=== PATIENT | female | born 1980 | race Caucasian/White ===

== ENCOUNTER 2017-10-24 10:58 | Day surgery (SDC) | payer OTHER ==
[~2017-10-24 10:58] MED LIST: Buffered Lidocaine 0.9% SYRIN* 5 ML/SYR SYRINGE INTRADERM ONE; ceFAZolin 2 GM PREMIX (*) 2 GM/50 ML BAG IVPB ONE
[2017-10-24 11:22] LABS: Hematocrit 40 % (35-47); Hemoglobin 13.4 g/dl (12.0-16.0); Mean Corpuscular HGB Conc 34 g/dl (31-36); Mean Corpuscular Hemoglobin 30 pg (27-31); Mean Corpuscular Volume 89 fL (80-97); Mean Platelet Volume 7.2 um3 (7.4-10.4); Platelet Count 215 10^3/ul (150-450); Red Blood Count 4.49 10^6/ul (4.00-5.40); Red Cell Distribution Width 12 % (10.5-15); White Blood Count 4.8 10^3/ul (3.5-10.8)
[2017-10-24] MEDS ORDERED: Midazolam* 1 MG/ML 2 ML VIAL (2 MG) ONE ×2 (11:55→13:24)
[2017-10-24] MEDS ORDERED: fentaNYL* 50 MCG/ML 2 ML VIAL (100 MCG VIAL) ONE (11:55)
[2017-10-24] MEDS ORDERED: DiMENhydriNATE IV* 50 MG/ML VIAL IV PUSH PRN (12:23)
[2017-10-24] MEDS ORDERED: Acetaminophen TAB* 325 MG PO PRN (12:23)
[2017-10-24] MEDS ORDERED: Ondansetron INJ* 2 MG/ML VIAL IV PRN (12:23)
[2017-10-24] MEDS ORDERED: Naloxone* 0.4 MG/ML 1 ML VIAL IV PRN (12:23)
[2017-10-24] MEDS ORDERED: fentaNYL* 50 MCG/ML 2 ML VIAL (100 MCG VIAL) IV PRN (12:23)
[2017-10-24] MEDS ORDERED: Scopolamine 1.5 mg* PATCH TRANSDERM PRN (12:23)
[2017-10-24] MEDS ORDERED: HYDROcodone/ACETAMIN 5-325 MG* 1 TAB PO PRN ×2 (12:23)
[2017-10-24] MEDS ORDERED: Nalbuphine* 10 MG/ML 1 ML VIAL IV PRN (12:23)
[2017-10-24] MEDS ORDERED: PROCHLORPERAZINE INJ 5 MG/ML 2 ML VIAL IV PRN (12:23)
[2017-10-24] MEDS ORDERED: Famotidine IV* 10 MG/ML 2 ML (20 mg) ONE (13:13)
[2017-10-24] MEDS ORDERED: Lidocaine 2% PF * 5 ML VIAL ONE (13:24)
[2017-10-24] MEDS ORDERED: Ondansetron INJ* 2 MG/ML VIAL ONE (13:25)
[2017-10-24] MEDS ORDERED: Dexamethasone IV* 4 MG/ML 1 ML (4 MG) ONE (13:25)
[2017-10-24] MEDS ORDERED: Ketorolac INJ* 30 MG/ML 1 ML VIAL ONE (13:25)
[2017-10-24] MEDS ORDERED: Propofol* 10 MG/ML 20 ML BTL IV PUSH ONE (13:25)
[2017-10-24 15:19] VITALS: BP 134/86
--- NOTE | 2017-10-25 02:28 | OP ---
CC: Dr. Davis, [facility] location, [address] OPERATIVE REPORT: DATE OF OPERATION: 10/24/17 DATE OF : 80 SURGEON: Dennis Davis MD ANESTHESIOLOGIST: Lm Warner MD ANESTHESIA: General endotracheal anesthesia. PRE-OP DIAGNOSIS: Embedded Mirena intrauterine device. POST-OP DIAGNOSIS: Embedded Mirena intrauterine device. OPERATIVE PROCEDURE: Dilation, hysteroscopy, removal of embedded Mirena IUD. FINDINGS: Midline anteverted uterus. No adnexal masses palpated. Midline cervix. With complete relaxation, the cervix prolapses to a second-third degree. The IUD was found to be sitting midline at the fundus. The IUD strings were both towards the fundus on the patient's right side. The IUD was examined and found to be intact with both strings attached. The endometrium appeared atrophic throughout. ESTIMATED BLOOD LOSS: Minimal, less than 20 cc. COMPLICATIONS: None. COUNTS: Sponge, lap, and needle count correct x2. CONDITION: The patient was brought to recovery room awake and in stable condition. DESCRIPTION OF PROCEDURE: The patient was brought to the operating room. When general anesthesia was found to be adequate, the patient was prepped and draped in the usual sterile fashion in the dorsal lithotomy position. A time-out was performed. Exam under anesthesia was performed. The IUD strings were not visualized or palpated. The anterior lip of the cervix was grasped with a single- tooth tenaculum. The cervix was gently and easily dilated with graduated Martinez dilators. The hysteroscope was introduced with the above findings noted. The operative hysteroscope was used to grasp the 2 strings and the IUD was gently and easily removed. It was examined. It was found to be intact. The remainder of the uterus was observed with the hysteroscope. The entire lining appeared atrophic. Both tubal ostia were visualized. All instruments were removed from the vagina. The patient tolerated the procedure well and was brought to recovery room awake and in stable condition. [id number]/[facility] #: [id number] [facility] SYSTEM[facility]ina
[2017-10-27] MEDS ORDERED: Scopolamine PATCH Remove* 1 NOTE MISC PATCH OFF ONE (12:24)
== END 2017-10-24 15:35 | disposition home or self-care (01) ==
LOC: OR 10:58
PROVIDERS: ATTEND Obstetrics & Gynecology
DX: T83.39XA Other mechanical complication of intrauterine contraceptive device, initial encounter (principal); Z87.440 Personal history of urinary (tract) infections; M47.812 Spondylosis without myelopathy or radiculopathy, cervical region; M47.817 Spondylosis without myelopathy or radiculopathy, lumbosacral region
CPT/HCPCS: 36415; 85027; 86850; 86900; 86901; J0690; J1100; J1885; J2250; J2405; J2704; J3010

== ENCOUNTER 2018-06-16 20:21 | Emergency (ER) | payer OTHER ==
--- OUTSIDE RECORDS SUMMARY | 2018-06-16 21:05 | XMS REPORT | Continuity of Care Document ---
:1980 External Reference #:[id number] Author Name Yael Wright PNP-BC, BARREL RIB MATTING MACHINE OPERATOR, [place] Address [address] [place] [address] Care Team Providers Name Role Phone Yael Wright PNP-BC, FNP, Andreea Care Team Information Clinical Rehabilitation Specialist Unavailable Yael Wright PNP-BC, FNP, [place]von Primary Care Physician Unavailable Payers Date Identification Numbers Payment Provider Subscriber Policy Number: [id number] [place] [employer] Adali Squires PayID: [id number] [address] [address] [place] [address] Advance Directives Description No Information Available Problems Date Description Provider Status Onset: 05/11/2015 Recurrent urinary tract infection Yael Santamaria PA- C Active Onset: 05/11/2015 Carpal tunnel syndrome Yael Santamaria PA-C Active Onset: 05/11/2015 Anemia Yael Santamaria PA-C Active Onset: 05/11/2015 Cervical arthritis Yael Santamaria PA-C Active Onset: 05/11/2015 Sciatica Yael Santamaria PA-C Active Onset: 05/11/2015 Anxiety Yael Santamaria PA-C Active Onset: 05/11/2015 History of bypass of stomach Yael Santamaria PA-C Active Onset: 05/11/2015 Gastroesophageal reflux disease Yael Santamaria PA-C Active Onset: 12/04/2016 Low back pain Margareth Hallman MD Active Onset: 12/04/2016 Neck pain Margareth Hallman MD Active Onset: 12/04/2016 Shoulder joint pain Margareth Hallman MD Active Onset: 03/05/2017 Bipolar I disorder Yael Wright, PNP-BC, Active [employer] MATTING MACHINE OPERATOR, Ibclc Onset: 05/11/2015 Adult health examination Yael Santamaria PA-C Resolved Resolved: 04/30/2016 Family History Date Family Member(s) Observation Comments Father Heart Disease : (age 62 Father due to Heart Disease Years) Father Diabetes Mother Mother Alive & Well Maternal Grandmother due to Lung Cancer () Maternal Grandmother due to Cancer, Brain () Social History Type Date Description Comments Sex Unknown Marital Status Single Lives With Children Lives With Significant Other Diet Patient follows no dietary restrictions Occupation Unemployed Work Status Part-Time ADL's/IADL's Independent with all ADL's ADL's/IADL's Independent with all IADL's Tobacco Use Start: Unknown Never Smoked Cigarettes ETOH Use Denies alcohol use Tobacco Use Start: Unknown Patient has never smoked Recreational Drug Use Denies Drug Use Smoking Status Reviewed: 05/12/18 Patient has never smoked Allergies, Adverse Reactions, Alerts Date Description Reaction Status Severity Comments 04/30/2016 Penicillin Active 04/30/2016 Hydrocodone Active 08/21/2017 Bactrim Urticaria Active Moderate 08/23/2014 NKDA Inactive Medications Medication Date Status Form Strength Qnty SIG Indications Ordering Provider Ketorolac Active Tablets 10mg 30tabs 1 tab M62.830 Kyle Tromethamine 019 every Yael, 4-6 PNP-BC, hours as [employer] MATTING MACHINE OPERATOR, Ibclc needed pain Decadron Active Tablets 0.5mg qs 2 tabs M25.512 Kyle 019 by mouth Yael, every PNP-BC, day x 5 [employer] M[employer]ING MACHINE OPERATOR, Ibclc days Duloxetine HCL Active Caps DR 60mg 30caps 1 by F41.9 Kyle, 019 Part mouth Yael, every PNP-BC, day [employer] MATTING MACHINE OPERATOR, Ibclc F31.9 Polyethylene 03/12/2018 Active Powder 3350NF 255gm mix 1 K59.00 Kyle Glycol 3350 tablespoon Yael, in 8 ounces PNP-BC, bottle two [employer] MATTING MACHINE OPERATOR, times a day Ibclc Lactulose 03/12/2018 Active Solution 10GM/15M 237ml 5ml by mouth K59.00 Vidhi Wright twice a day Yael, for 5 days PNP-BC, [employer] MATTING MACHINE OPERATOR, Ibclc Quetiapine 02/25/2018 Active Tablets 50mg 30tabs take 1 at F31.9 Kyle , Fumarate bedtime with Yael, 200mg PNP-BC, tablet. [employer] MATTING MACHINE OPERATOR, Ibclc Oxycodone-Aceta 12/23/2017 Active Tablets 10-325mg 90tabs 1 by mouth M48.00 Kyle minophen for pain Yael, every 6 PNP-BC, hours as [employer] MATTING MACHINE OPERATOR, needed Ibclc reference #: [id number] M54.5 Quetiapine 07/29/2017 Active Tablets 200mg 30tabs 1 tab at F31.9 Kyle , Fumarate bedtime Yael, with 50mg PNP-BC, tablet [employer] MATTING MACHINE OPERATOR, Ibclc Tramadol HCL 07/23/2017 Active Tablets 50mg 180tabs take two M54.2 Kyle, tablets by Yael, mouth every PNP-BC, 8 hours as [employer] MATTING MACHINE OPERATOR, needed for Ibclc pain Reference #: [id number] Cyclobenzaprine 07/02/2017 Active Tablets 10mg 90tabs 1 by mouth M48.00 Kyle, HCL three times Yael, a day as PNP-BC, needed [employer] MATTING MACHINE OPERATOR, muscle Ibclc spasms M54.5 M54.2 Clonazepam 06/19/2017 Active Tablets 1mg 90tabs take 1 tab F41.9 Kyle , every day Yael, as needed PNP-BC, for [employer] MATTING MACHINE OPERATOR, moderate Ibclc severe anxiety Reference #: [id number] Zofran Odt 03/05/2017 Active Tablets 8mg 30tabs 1 po q6 R11.0 Kyle, Dispers hours as Yael, needed PNP-BC, [employer] MATTING MACHINE OPERATOR, Ibclc Vistaril 03/05/2017 Active Capsules 50mg 120caps 1 cap by F41.9 Kyle, mouth every Yael, 6 hours as PNP-BC, needed [employer] MATTING MACHINE OPERATOR, Ibclc Pantoprazole 04/18/[address] 40mg 60tabs 1 tab once K21.9 Kyle, Sodium to twice a Yael, day PNP-BC, [employer] MATTING MACHINE OPERATOR, Ibclc Ra Vitamin D-3 Active Capsules 2000U 30caps 1 by mouth E55.9 Kyle, nit everyday Yael, PNP-BC, [employer] MATTING MACHINE OPERATOR, Ibclc Ketorolac 04/22/2018 - Hx Tablets 10mg 30tabs 1 tab every M62.83 Kyle , Tromethamine 04/27/2018 4-6 hours 0 Yael, as needed PNP-BC, pain [employer] MATTING MACHINE OPERATOR, Ibclc Nitrofurantoin 01/13/2018 - Hx Capsules 100mg 14caps 1 by mouth Kyle , Monohyd Macro 01/20/2018 twice a day Yael, PNP-BC, [employer] MATTING MACHINE OPERATOR, Ibclc Ciprofloxacin HCL 11/21/2017 - Hx Tablets 500mg 10tabs Take 1 N30.90 Reese, 11/26/2017 tablet by Melonie, mouth every MD 12 hours for 5 days for infection Phenazopyridine 11/21/2017 - Hx Tablets 200mg 6tabs 1 tab by N30.90 Reese, HCL 11/23/2017 mouth three Melonie, times a day MD as needed Cephalexin 11/05/2017 - Hx Capsules 500mg 14caps 1 tab by L03.01 Kaleigh, 11/12/2017 mouth twice 1 Livier, a day M.DJeff Nitrofurantoin 08/21/2017 - Hx Capsules 100mg 14caps 1 by mouth N39.0 Kyle, Monohyd Macro 08/28/2017 twice a day Yael PNP-BC, [employer] MATTING MACHINE OPERATOR, Ibclc Quetiapine 07/29/2017 - Hx Tablets 50mg 15tabs 1 tab qhs F31.9 Kyle, Fumarate 08/21/2017 x2 days; Yael, then PNP-BC, increase to BAR[employer] MATTING MACHINE OPERATOR, 2 tabs for Ibclc 2 days; then increase to 3 tabs for 3 days and then switch to 200mg tablets Sulfamethoxazole/ 07/23/2017 - Hx Tablets 800-1 14tabs 1 by mouth N39.0 Kyle Trimethoprim DS 08/21/2017 60mg twice a day Yael for 7 days PNP-BC, [employer] MATTING MACHINE OPERATOR, Ibclc Aripiprazole 07/23/2017 - Hx Tablets 5mg 30tabs 1 tab at F31.9 Kyle, 07/29/2017 bedtime Yael PNP-BC, [employer] MATTING MACHINE OPERATOR, Ibclc Tramadol HCL ER 07/06/2017 - Hx Tablets ER 300mg 1 po qam M54.5 Kyle , (Biphasic) 07/23/2017 24HR Yael PNP-BC, [employer] MATTING MACHINE OPERATOR, Ibclc Tramadol HCL ER 07/02/2017 - Hx Caps ER 300mg 30caps 1 tab po q M54.5 Kyle, 07/06/2017 24HR am Ref # Yael, [id number] PNP-BC, [employer] MATTING MACHINE OPERATOR, Ibclc Ketorolac 07/01/2017 - Hx Tablets 10mg 28tabs 1 tab every Reese, Tromethamine 02/25/2018 4-6 hours Melonie, if needed for mod. to severe pain Clonazepam 05/08/2017 - Hx Tablets 0.5mg 90tabs 1 tab by F41.9 Kyle, 06/19/2017 mouth three Yael, times a day PNP-BC, as needed [employer] MATTING MACHINE OPERATOR, Ref # Sulaimanclc [id number] Clonazepam 05/07/2017 - Hx Tablets 0.25m 90tabs 1 po tid F41.9 Kyle, 05/08/2017 Dispers g Ref#[id number] Yael, 5 PNP-BC, BAR[employer] MATTING MACHINE OPERATOR, Ibclc Nitrofurantoin 04/27/2017 - Hx Capsules 100mg 20caps 1 by mouth Kyle , Monohyd Macro 05/07/2017 twice a day Yael, PNP-BC, [employer] MATTING MACHINE OPERATOR, Ibclc Valium 03/27/2017 - Hx Tablets 5mg 14tabs 1 tab twice F41.9 Kyle, 08/21/2017 a day as Yael, needed ref: JOYA-BC, [id number] BAR[employer] MATTING MACHINE OPERATOR, Ibclc Duloxetine HCL 03/26/2017 - Hx Caps 30mg 60caps 2 tabs by Kyle, 04/25/2017 Part mouth Yael, everyday PNP-BC, [employer] MATTING MACHINE OPERATOR, Ibclc Polyethylene 03/24/2017 - Hx Powder 3350N 527gm 17 g by K59.03 Kyle, Glycol 3350 07/01/2017 F mouth once Yael, a day PNP-BC, BAR[employer] MATTING MACHINE OPERATOR, Ibclc Cymbalta 03/18/2017 - Hx Caps DR 60mg 30caps 1 by mouth F31.9 Kyle, 03/28/2017 Part every day Yael, PNP-BC, BAR[employer] MATTING MACHINE OPERATOR, Ibclc Tramadol HCL 03/12/2017 - Hx Tablets 50mg 120tabs take one to M54.5 Kyle, 07/02/2017 two tablets Yael, by mouth JOYA-BC, every 6 BAR[employer] MATTING MACHINE OPERATOR, hours as Ibclc needed for pain ref # [id number] Cymbalta 03/05/2017 - Hx Caps DR 30mg 60caps 1 by mouth F31.9 Kyle, 03/18/2017 Part every day Yael, for 1 week PNP-BC, and then 2 BARREL [employer] MATTING MACHINE OPERATOR, by mouth Ibclc each day Tramadol HCL ER 02/25/2017 - Hx Tablets ER 200mg 30tabs 1 tab qam M48.Saad Wright, (Biphasic) 03/12/2017 24HR Ref # Yael, [id number] PNP-BC, BAR[employer] R[employer] MATTING MACHINE OPERATOR, Ibclc Tramadol HCL ER 02/24/2017 - Hx Tablets ER 100mg M48.00 Kyle, 02/25/2017 24HR Yael, PNP-BC, [employer] MATTING MACHINE OPERATOR, Ibclc Amoxicillin 12/02/2016 - Hx Tablets 500mg 18tabs 1 tab by J20.9 Kyle, 12/12/2016 mouth three Yael, times a day PNP-BC, for 6 days [employer] MATTING MACHINE OPERATOR, Ibclc Albuterol Sulfate 12/02/2016 - Hx Nebulizer (2.5m 1Box nebulized J20.9 Kyle, 07/01/2017 g/3ML every 4 Yael, ) hours as PNP-BC, 0.083 needed BAR[employer] MATTING MACHINE OPERATOR, % Ibclc Tramadol HCL 10/31/2016 - Hx Tablets 50mg 90tabs 1-2 tabs by M48.Saad Munguia, 02/24/2017 mouth every Jonelle 4-6 hours nayan, for pain BAR[employer] MATTING MACHINE OPERATOR Reference #: [id number] Oxycodone-Acetami 10/31/2016 - Hx Tablets 5-325 90tabs 1 tab by M48.trang Warren 12/23/2017 mg mouth every Yael, 6-8 hours PNP-BC, for severe [employer] MATTING MACHINE OPERATOR, pain as Ibclc needed reference #: [id number] M54.5 Bupropion HCL ER 09/30/2016 - Hx Tablets ER 150mg 7tabs 1 by M48.Saad Wright, (XL) 09/30/2016 24HR mouth Yael, every day PNP-BC, for 1 BARREL R[employer] MATTING MACHINE OPERATOR, Ibclc week Cyclobenzaprine HCL 09/30/2016 - Hx Tablets 5mg 60tabs 1 by M48.Saad Wright, 07/02/2017 mouth Yael, three PNP-BC, times a BAR[employer] R[employer] MATTING MACHINE OPERATOR, Ibclc day as needed for neck pain M54.5 M54.2 Bupropion HCL ER 09/30/2016 - Hx Tablets ER 300mg 30tabs 1 by mouth M48.Saad Wright (XL) 10/31/2016 24HR every day Yael start after PNP-BC, 7 days of BARREL [employer] MATTING MACHINE OPERATOR, 150mg Ibclc Ear Wax Removal 04/30/2016 - Hx Solution 6.5% 15ml instill 5 H61.21 Kaleigh , Drops 09/30/2016 drops into Livierrowdy M.D. ear 2 times per day for 4 days for removal of wax from the ear Golytely 05/11/2015 - Hx Solution 236gm 1jug drink / R10.9 Vatra, 04/30/2016 Rec the jug the Anil, day before MD the procedure a/d, then the other half the morning of the procedure a/d Progesterone - Hx Capsules Unknown 05/11/2015 Mirena - Hx IUD 20mcg/2 Unknown 11/05/2017 4HR Nitrofurantoin - Hx Capsules 100mg one by Unknown Macrocrystal 07/01/2017 mouth Once Daily Duloxetine HCL - Hx Caps DR 30mg 60caps take 2 F41.9 Kyle, 04/20/2018 Part capsules by gurpreet Conley once PNP-BC, daily BAR[employer] MATTING MACHINE OPERATOR, Ibclc F31.9 Medications Administered in Office Medication Date Status Form Strength Qnty SIG Indications Ordering Provider Injection Administered Injection Kyle Ketorolac 019 Yael Tromethamine 30 PNP-BC, MG/mL (Toradol) BAR[employer] MATTING MACHINE OPERATOR, Ibclc PPD Administered Injection Wanda, 017 MAXINE Toney-C Immunizations CPT Code Status Date Vaccine Lot # [id number] Given 04/30/2016 Td Preservative Free For Use In Individuals 7 Yrs Or A092C Older Vital Signs Date Vital Result Comment 05/12/2018 3:42pm BP Systolic 104 mmHg BP Diastolic 64 mmHg Body Temperature 97.0 F Heart Rate 90 /min Respiratory Rate 16 /min Height 64 inches 5'4" Weight 157.00 lb BMI (Body Mass Index) 26.9 kg/m2 BSA (Body Surface Area) 1.77 m2 [place] body weight in kilograms 54 kg O2 % BldC Oximetry 100 % 04/22/2018 10:33am BP Systolic 101 mmHg BP Diastolic 77 mmHg Body Temperature 98.2 F Heart Rate 90 /min Respiratory Rate 16 /min Height 64 inches 5'4" Weight 156.50 lb BMI (Body Mass Index) 26.9 kg/m2 BSA (Body Surface Area) 1.76 m2 [place] body weight in kilograms 54 kg O2 % BldC Oximetry 99 % 03/12/2018 10:45am BP Systolic 110 mmHg BP Diastolic 72 mmHg Body Temperature 96.7 F Heart Rate 96 /min Respiratory Rate 18 /min Weight 157.00 lb O2 % BldC Oximetry 98 % 02/25/2018 10:14am BP Systolic Sitting Left Arm 118 mmHg BP Diastolic Sitting Left Arm 78 mmHg Body Temperature 97.6 F Heart Rate 93 /min Weight 158.00 lb O2 % BldC Oximetry 98 % 12/23/2017 6:13pm BP Systolic 110 mmHg BP Diastolic 70 mmHg Body Temperature 97.4 F Heart Rate 89 /min Respiratory Rate 16 /min Weight 152.00 lb O2 % BldC Oximetry 99 % 11/21/2017 3:53pm BP Systolic Sitting Right Arm 112 mmHg BP Diastolic Sitting Right Arm 68 mmHg Body Temperature 98.0 F Heart Rate 89 /min Weight 256.00 lb O2 % BldC Oximetry 97 % 11/05/2017 9:38am BP Systolic Sitting Right Arm 116 mmHg BP Diastolic Sitting Right Arm 62 mmHg Body Temperature 97.4 F Heart Rate 99 /min Weight 157.12 lb O2 % BldC Oximetry 98 % 10/03/2017 9:14am Height 64 inches 5'4" Weight 148.50 lb BMI (Body Mass Index) 25.5 kg/m2 BSA (Body Surface Area) 1.72 m2 [place] body weight in kilograms 54 kg 09/22/2017 11:28am BP Systolic 110 mmHg BP Diastolic 70 mmHg Body Temperature 97.0 F Heart Rate 93 /min Respiratory Rate 17 /min Height 64 inches 5'4" Weight 144.00 lb BMI (Body Mass Index) 24.7 kg/m2 BSA (Body Surface Area) 1.70 m2 [place] body weight in kilograms 54 kg O2 % BldC Oximetry 97 % 08/21/2017 11:32am BP Systolic 118 mmHg BP Diastolic 70 mmHg Body Temperature 98.0 F Heart Rate 104 /min Respiratory Rate 17 /min Height 64 inches 5'4" Weight 142.00 lb BMI (Body Mass Index) 24.4 kg/m2 BSA (Body Surface Area) 1.69 m2 [place] body weight in kilograms 54 kg O2 % BldC Oximetry 97 % 07/23/2017 10:48am BP Systolic 108 mmHg BP Diastolic 66 mmHg Body Temperature 97.2 F Heart Rate 88 /min Height 64 inches 5'4" Weight 144.00 lb BMI (Body Mass Index) 24.7 kg/m2 BSA (Body Surface Area) 1.70 m2 [place] body weight in kilograms 54 kg O2 % BldC Oximetry 98 % 07/01/2017 3:21pm BP Systolic Sitting Left Arm 120 mmHg BP Diastolic Sitting Left Arm 74 mmHg Height 64 inches 5'4" Weight 139.00 lb BMI (Body Mass Index) 23.9 kg/m2 BSA (Body Surface Area) 1.68 m2 [place] body weight in kilograms 54 kg 05/27/2017 1:14pm BP Systolic 122 mmHg BP Diastolic 78 mmHg Body Temperature 97.2 F Heart Rate 89 /min Respiratory Rate 17 /min Height 64 inches 5'4" Weight 133.00 lb BMI (Body Mass Index) 22.8 kg/m2 BSA (Body Surface Area) 1.64 m2 [place] body weight in kilograms 54 kg O2 % BldC Oximetry 96 % 04/30/2017 10:50am BP Systolic 112 mmHg BP Diastolic 72 mmHg Body Temperature 97.3 F Heart Rate 86 /min Respiratory Rate 17 /min Height 64 inches 5'4" Weight 136.00 lb BMI (Body Mass Index) 23.3 kg/m2 BSA (Body Surface Area) 1.66 m2 [place] body weight in kilograms 54 kg O2 % BldC Oximetry 96 % 03/24/2017 1:22pm BP Systolic 118 mmHg BP Diastolic 76 mmHg Body Temperature 97.3 F Heart Rate 90 /min Respiratory Rate 16 /min Height 64 inches 5'4" Weight 133.00 lb BMI (Body Mass Index) 22.8 kg/m2 BSA (Body Surface Area) 1.64 m2 [place] body weight in kilograms 54 kg O2 % BldC Oximetry 98 % 03/05/2017 10:31am BP Systolic 118 mmHg BP Diastolic 74 mmHg Body Temperature 97.6 F Heart Rate 72 /min Height 64 inches 5'4" Weight 135.00 lb BMI (Body Mass Index) 23.2 kg/m2 BSA (Body Surface Area) 1.66 m2 [place] body weight in kilograms 54 kg 02/20/2017 3:12pm BP Systolic 122 mmHg BP Diastolic 78 mmHg Heart Rate 91 /min Height 64 inches 5'4" Weight 141.00 lb BMI (Body Mass Index) 24.2 kg/m2 BSA (Body Surface Area) 1.69 m2 [place] body weight in kilograms 54 kg 12/04/2016 11:02am BP Systolic Sitting Right Arm 123 mmHg BP Diastolic Sitting Right Arm 87 mmHg Heart Rate 84 /min Height 64 inches 5'4" Weight 158.00 lb BMI (Body Mass Index) 27.1 kg/m2 BSA (Body Surface Area) 1.77 m2 [place] body weight in kilograms 54 kg 12/02/2016 3:18pm BP Systolic 108 mmHg BP Diastolic 70 mmHg Body Temperature 97.1 F Heart Rate 88 /min Height 64 inches 5'4" Weight 157.00 lb BMI (Body Mass Index) 26.9 kg/m2 BSA (Body Surface Area) 1.77 m2 [place] body weight in kilograms 54 kg O2 % BldC Oximetry 97 % 10/31/2016 1:23pm BP Systolic 110 mmHg BP Diastolic 79 mmHg Heart Rate 82 /min Height 64 inches 5'4" Weight 156.00 lb BMI (Body Mass Index) 26.8 kg/m2 BSA (Body Surface Area) 1.76 m2 [place] body weight in kilograms 54 kg 09/30/2016 1:48pm BP Systolic 125 mmHg BP Diastolic 87 mmHg Body Temperature 97.0 F Heart Rate 93 /min Height 64 inches 5'4" Weight 158.00 lb BMI (Body Mass Index) 27.1 kg/m2 BSA (Body Surface Area) 1.77 m2 [place] body weight in kilograms 54 kg 04/30/2016 11:14am BP Systolic 128 mmHg BP Diastolic 88 mmHg Body Temperature 99.2 F Heart Rate 92 /min Respiratory Rate 18 /min Height 64 inches 5'4" Weight 167.00 lb BMI (Body Mass Index) 28.7 kg/m2 BSA (Body Surface Area) 1.81 m2 [place] body weight in kilograms 54 kg 05/11/2015 11:07am BP Systolic 120 mmHg BP Diastolic 76 mmHg Height 65.00 inches 5'5" Weight 159.00 lb BMI (Body Mass Index) 26.5 kg/m2 BSA (Body Surface Area) 1.79 m2 04/18/2015 3:03pm Height 65.00 inches 5'5.00" Weight 160.00 lb 04/18/2015 3:03pm BP Systolic 128 mmHg BP Diastolic 85 mmHg Body Temperature 97.7 F Heart Rate 71 /min Respiratory Rate 16 /min Height 65 inches Weight 160.31 lb BMI (Body Mass Index) 26.72 kg/m2 BSA (Body Surface Area) 1.80 m2 O2 % BldC Oximetry 98 % Results Test Date Facility Test Result H/L Range Note Urine Culture 03/12/2018 [facility] Urine Culture [facility] [address] [place] [address] [phone] Quantity 10,000 - 100,000 <SEE NOTE> 2 Chlam/GC/Trichomonas 03/12/2018 [facility] Ur Trichomonas NEGATIVE Negative PCR, Ur [address] vaginalis,[place] [address] [phone] Ur Chlamydia trachomatis,PCR NEGATIVE Negative Ur Neisseria gonorrhoeae,PCR NEGATIVE Negative 3 Urine Dipstick 03/12/2018 [facility] Ua Color Dark Yellow Yellow Ua Clarity Clear Clear Ua Leuko Negative Negative Ua Nitrite Negative Negative Ua Urobilinogen 0.2 0.2 - 1.0 E.U./dL Ua Protein Trace Negative Ua PH 6.5 6.5-7.5 Ua Blood Negative Negative Ua Specific [place] 1.015 1.010-1.030 Ua Ketones Negative Negative Ua Bilirubin Negative Negative Ua Glucose Negative Negative Urine Dipstick 01/13/2018 [facility] Inhouse Ua Color dark yellow Yellow Ua Clarity cloudy Clear Ua Leuko +3 High Negative Ua Nitrite + High Negative Ua Urobilinogen 0.2 0.2 - 1.0 E.U./dL Ua Protein + High Negative Ua PH 6.0 Low 6.5-7.5 Ua Blood + High Negative Ua Specific [place] 1.030 1.010-1.030 Ua Ketones neg Negative Ua Bilirubin neg Negative Ua Glucose neg Negative Urine Culture 11/21/2017 [facility] Urine ENTEROBACTER AKILA Abnormal [address] Culture <SEE NOTE> [place] [address] [phone] Quantity > 100,000 CFU/mL 5 [id number] 11/21/2017 [facility] Nitrofurantoin [address] [place] [address] [phone] Trimethoprim/Sulfamethoxazole <=20 S Cefazolin >=64 R Ciprofloxacin <=0.25 S Piperacillin/Tazobactam <=4 S Ceftazidime <=1 S Ceftriaxone <=1 S Cefepime <=1 S Levofloxacin <=0.12 S Imipenem <=0.25 S Gentamicin <=1 S Tobramycin <=1 S Urine Dipstick 11/21/2017 [facility] Inhouse Ua Color yellow Yellow Ua Clarity cloudy Clear Ua Leuko moderate Negative Ua Nitrite positive Negative Ua Urobilinogen 0.2 0.2 - 1.0 E.U./dL Ua Protein negative Negative Ua PH 6.5 6.5-7.5 Ua Blood moderate Negative Ua Specific [place] 1.010 1.010-1.030 Ua Ketones negative Negative Ua Bilirubin negative Negative Ua Glucose negative Negative CBC No Diff 10/24/2017 [facility] White Blood 4.8 10^ 3/uL N 3.5-10.8 [phone] Count Red Blood Count 4.49 10^6/uL N 4.00-5.40 Hemoglobin 13.4 g/dL N 12.0-16.0 Hematocrit 40 % N 35-47 Mean Corpuscular Volume 89 fL N 80-97 Mean Corpuscular Hemoglobin 30 pg N 27-31 Mean Corpuscular HGB Conc 34 g/dL N 31-36 Red Cell Distribution Width 12 % N 10.5-15 Platelet Count 215 10^3/uL N 150-450 Mean Platelet Volume 7.2 um3 Low 7.4-10.4 Type & Screen 10/24/2017 [facility] Patient Blood O Positive [phone] Type Antibody Screen NEGATIVE Urine Culture 09/22/2017 [facility] Urine Culture [facility] [address] [place] [address] [phone] Quantity > 100,000 CFU/mL 7 Ua Routine 09/22/2017 [facility] Inhouse Ua Specific [place] 1.030 1.010-1.030 Ua PH 7.0 6.5-7.5 Ua Color Yellow Yellow Ua Appera Dark Ua WBC Negative Ua Protein Trace Negative Ua Glucose Negative Negative Ua Ketones Negative Negative Ua Bilirubin Negative Negative Ua Nitrite Negative Negative Ua Occult Blood Trace Escherichia Coli 08/21/2017 [facility] Nitrofurantoin <=[address] [place] [address] [phone] Trimethoprim/Sulfamethoxazole >=320 R Ampicillin >=32 R Cefazolin <=4 S Ampicillin/Sulbactam >=32 R Ciprofloxacin >=4 R Piperacillin/Tazobactam <=4 S Ceftazidime <=1 S Ceftriaxone <=1 S Cefepime <=1 S Levofloxacin >=8 R Imipenem <=0.25 S Gentamicin >=16 R Tobramycin 4 S Urine Culture 08/21/2017 [facility] Urine Culture ESCHERICHIA COLI Abnormal [address] [place] [address] [phone] Quantity > 100,000 CFU/mL 9 Urine Culture [facility] Quantity 50,000 - 100,000 <SEE NOTE> 10 Urine Dipstick 08/21/2017 [facility] Inhouse Ua Color yellow Yellow Ua Clarity cloudy Clear Ua Leuko moderate Negative Ua Nitrite positive Negative Ua Urobilinogen 0.2 0.2 - 1.0 E.U./dL Ua Protein trace Negative Ua PH 6.0 Low 6.5-7.5 Ua Blood positive Negative Ua Specific [place] 1.010 1.010-1.030 Ua Ketones negative Negative Ua Bilirubin small Negative Ua Glucose negative Negative Urine Dipstick 07/23/2017 [facility] Ua Color yellow Yellow Ua Clarity turbid Clear Ua Leuko negative Negative Ua Nitrite negative Negative Ua Protein negative Negative Ua PH 6.0 Low 6.5-7.5 Ua Blood mod non-hemolizd Negative Ua Specific [place] 1.015 1.010-1.030 Ua Ketones negative Negative Ua Bilirubin negative Negative Ua Glucose negative Negative Urine Culture 07/23/2017 [facility] Urine Culture [facility] [address] [place] [address] [phone] Quantity 10,000 - 50,000 <SEE NOTE> 12 Glycohemoglobin A1c 07/23/2017 [facility] Glycohemoglobin 5.1 % N 4.2-6.3 [address] [facility] (A1c) [place] [address] [phone] eAG 100 mg/dL Rheumatoid Panel 07/23/2017 [facility] Sedimentation Rate 7 mm/hr N 0-20 14 ([facility]) [address] [place] [address] [phone] Uric Acid 5.0 mg/dL N 2.6-6.0 Rheumatoid Factor Screen < 10.0 IU/mL N 0.0-15.0 C-Reactive Protein,Quant < 2.9 mg/L <3.0 Antinuclear Antibodies, Ifa Negative . 15 Lyme AB/Western 07/23/2017 [facility] Lyme Total < 0.91 0.00-0.90 [address] AB/[place] [address] [phone] Lyme Disease Antibody,QT,Igm < 0.80 index 0.00-0.79 17 CBC 07/23/2017 [facility] White Blood Count 3.8 K/uL N 3.1-10.[address] [place] [address] [phone] Red Blood Count 4.21 M/uL N 3.90-5.40 Hemoglobin 13.1 gm/dL N 11.6-15.8 Hematocrit 38.5 % N 36.0-46.1 Mean Cell Volume 91.4 fl N 80.9-99.0 Mean Corpuscular HGB 31.1 pg N 25.9-32.7 Mean Corpuscular HGB Conc 34.0 g/dL N 30.8-34.3 Platelet Count 209 K/uL N 155-360 Red Cell Distri Width %CV 11.8 % N 11.7-14.4 Mean Platelet Volume 9.5 fL N 8.9-12.4 Systemic Lupus 07/23/2017 [facility] Ra Latex <10.0 IU/mL 0.0-13.9 Erythem. Profil [address] [place] [address] [phone] Anti-Dna Antibody ([place]) 1 IU/mL 0-9 18 SM Antibody <0.2 AI 0.0-0.9 REDEVELOPMENT MANAGER Antibody 0.3 AI 0.0-0.9 Sjogrens Antibodies (Ssa) <0.2 AI 0.0-0.9 Antichromatin Antibodies <0.2 AI 0.0-0.9 Sjogrens Antibodies (SSB) <0.2 AI 0.0-0.9 Ua RFX Micro & Culture 04/25/2017 [facility] Urine Color YELLOW Yellow 19 [address] [place] [address] [phone] Urine Clarity CLEAR Clear Urine Glucose - Dipstick NEGATIVE mg/dL Negative Urine Bilirubin - Dipstick NEGATIVE Negative Urine Ketone NEGATIVE mg/dL Negative Urine Specific [place] <=1.005 Low 1.010-1.030 Urine Blood SMALL Abnormal Negative Urine PH 6.0 Low 6.5-7.5 Urine Protein - Dipstick NEGATIVE mg/dL Negative Urine Urobilinogen - Dipstick 0.2 E.U./dL N 0.2-1.0 Urine Nitrite - Dipstick POSITIVE Abnormal Negative Urine Leuk Esterase NEGATIVE Negative Urine RBC 0-2 rbc/hpf 0-2 Urine WBC 0-2 wbc/hpf 0-7 Urine Epithelial Cells VERY FEW /lpf None Seen Urine Bacteria MODERATE Abnormal None Seen Source: URINE, CLEAN CAT <SEE NOTE> 20 Culture If 04/25/2017 [facility] Culture If CULTURE TO 21 Indicated Comment [address] [facility] Indicated Comment FOLLO <[place] [address] NOTE> [phone] Source: URINE, CLEAN CAT <SEE NOTE> 22 Drugs Of 04/25/2017 [facility] Amphetamines (Urine) Negative Abuse-Urine Screen [address] [place] [address] [phone] Barbiturates (Urine) Negative Benzodiazepines (Urine) POSITIVE High Cannabinoids (Urine) POSITIVE Abnormal Cocaine Metabolite (Urine) Negative Methadone (Urine) Negative Opiates (Urine) Negative Urine Cutoffs * 23 Urine Culture 04/25/2017 [facility] Urine ESCHERICHIA COLI Abnormal [address] Culture [place], [place] [id number] [phone] Quantity > 100,000 CFU/mL 25 Urine Culture URETHRAL CAMRON Quantity 10,000 - 50,000 <SEE NOTE> 26 Escherichia Coli 04/25/2017 [facility] Nitrofurantoin <=[address] [place] [address] [phone] Trimethoprim/Sulfamethoxazole >=320 R Ampicillin >=32 R Cefazolin <=4 S Ampicillin/Sulbactam >=32 R Ciprofloxacin >=4 R Piperacillin/Tazobactam <=4 S Ceftazidime <=1 S Ceftriaxone <=1 S Cefepime <=1 S Levofloxacin >=8 R Imipenem <=0.25 S Gentamicin >=16 R Tobramycin 4 S CBS W/Automated Diff 04/25/2017 [facility] White Blood 8.2 K/uL N 3.1-10.[address] [place] [address] [phone] Red Blood Count 4.78 M/uL N 3.90-5.40 Hemoglobin 15.2 gm/dL N 11.6-15.8 Hematocrit 43.8 % N 36.0-46.1 Mean Cell Volume 91.6 fl N 80.9-99.0 Mean Corpuscular HGB 31.8 pg N 25.9-32.7 Mean Corpuscular HGB Conc 34.7 g/dL High 30.8-34.3 Platelet Count 216 K/uL N 155-360 Red Cell Distri Width SD 42.2 fl N 3-47 Red Cell Distri Width %CV 12.8 % N 11.7-14.4 Mean Platelet Volume 9.9 fL N 8.9-12.4 Neut% 60.3 % N 40.4-72.8 Lymph % 33.1 % N 20.0-42.0 [place] % 5.6 % N 4.3-13.2 Eo% 0.9 % N 0.0-6.6 Bas% 0.1 % N 0.0-1.1 Neut# 4.93 K/uL N 1.8-7.0 Lymph # 2.71 K/uL N 1.0-4.0 [place] # 0.46 K/uL N 0.3-0.9 Eos # 0.07 K/uL N 0.0-0.5 Baso # 0.01 K/uL N 0.0-0.1 Urine HCG 04/25/2017 [facility] Urine HCG NEGATIVE Negative 27 (Qualitative) [address] (Qualitative) [place] [address] [phone] Source: URINE, CLEAN CAT <SEE NOTE> 28 Laboratory test 04/25/2017 [facility] TSH Reflex 0.53 uIU/mL N 0.30-4.[address] FT4 and/[place] [address] FT3 [phone] Comprehensive 04/25/2017 [facility] Glucose 79 mg/dL N 74-106 Metabolic Panel [address] [place] [address] [phone] BUN 13 mg/dL N 7-18 Creatinine 0.8 mg/dL N 0.6-1.3 Glom Filtration Rate, Estimate >60 mL/min >60 If >60 mL/min >60 29 BUN/Creat 16.2 ratio Sodium 140 mmol/L N 136-145 Potassium 3.5 mmol/L N 3.5-5.1 Chloride 104 mmol/L N 98-107 Carbon Dioxide 31 mmol/L N 21-32 Anion Gap 5 mEq/L Low 8-16 Calcium 9.2 mg/dL N 8.5-10.1 Total Protein 8.2 g/dL N 6.4-8.2 Albumin 4.4 g/dL N 3.4-5.0 Globulin 3.8 g/dL N 1.9-4.3 Alb/Glob 1.2 ratio Bilirubin,Total 0.8 mg/dL N 0.2-1.0 Sgot/Ast 44 U/L High 15-37 SGPT/Alt 66 U/L N 12-78 Alkaline Phosphatase 80 U/L N 45-117 Laboratory test 04/25/2017 [facility] Salicylate 3.4 mg/dL N 2.8-20.0 [address] [place] [address] [phone] Acetaminophen < 2.0 ug/mL Low 10.0-30.0 31 Ethyl Alcohol < 3.0 mg/dL Urine Culture 04/30/[address] [facility] [address] Urine Culture NO GROWTH: FINAL 32, 33 [address] [facility] <SEE NOTE> [place] [address] [phone] 1 R39.15 2 10,000 - 100,000 CFU/mL 3 A negative result for either C. trachomatis and/or N. gonorrhoeae does not preclued an infection because results are dependent on adequate specimen collection, absence of inhibitors, and sufficient DNA to be detected. 4 ENTEROBACTER CLOACAE COMPLEX 5 > 100,000 CFU/mL 6 F31.9 R31.9 7 > 100,000 CFU/mL 8 ESCHERICHIA COLI 9 > 100,000 CFU/mL 10 50,000 - 100,000 CFU/mL 11 N39.0 Z13.1 G62.9 12 10,000 - 50,000 CFU/mL 13 Elevated levels of HbA1c suggest the need for more aggressive treatment of glycemia. The [place] [employer] recommends that a primary goal of therapy should be a HbA1c of <7% and that physicians should re-evaluate the treatment regimen in patients with HbA1c values consistently >8%. 14 Method: Sediplast Modified [place] 15 Negative <1:80 Borderline 1:80 Positive >1:80 Performed at: RN - [facility] [address] [id number] High Voltage Electrician: Arianna Hall MD, Phone: [phone] 16 Negative <0.91 Equivocal 0.91 - 1.09 Positive >1.09 17 Negative <0.80 Equivocal 0.80 - 1.19 Positive >1.19 IgM levels may peak at 3-6 weeks post infection, then gradually decline. 18 Negative <5 Equivocal 5 - 9 Positive >9 19 941 20 URINE, CLEAN CATCH 21 CULTURE TO FOLLOW 22 URINE, CLEAN CATCH 23 URINE SPECIMENS ARE SCREENED AT THE LISTED [facility] CLASS INITIAL TEST LEVEL Amphetamines 1000 ng/mL Barbiturates 200 ng/mL Benzodiazepines 200 ng/mL Cannabinoids 50 ng/mL Cocaine Metabolite 300 ng/mL Methadone 300 ng/mL Opiates 300 ng/mL Any PRESUMPTIVE POSITIVE findings are UNCONFIRMED. Confirmatory testing is suggested if findings are unexpected. Please contact laboratory if confirmatory testing is desired. SPECIMENS ARE HELD FOR 72 HOURS. 24 ESCHERICHIA COLI 25 > 100,000 CFU/mL 26 10,000 - 50,000 CFU/mL 27 FIRST MORNING SPECIMENS GENERALLY CONTAIN THE HIGHEST CONCENTRATION OF HCG AND ARE RECOMMENDED FOR EARLY DETECTION OF . Method: Quidel QuickVue One-Step Immunoassay 28 URINE, CLEAN CATCH 29 Note: Persistent reduction for 3 months or more in an eGFR <60 mL/min/1.73 m2 defines CKD. Patients with eGFR values >/=60 mL/min/1.73 m2 may also have CKD if evidence of persistent proteinuria is present. The original MDRD equation for estimated GFR is not valid for patients less than 18 years of age. Additional information may be found at www.kdoqi.org. 30 THERAPEUTIC RANGE: 15-30 mg/dL POTENTIAL TOXICITY VARIES WITH TIME FROM INGESTION. PLEASE CONSULT APPROPRIATE NOMOGRAM. 31 Acetaminophen concentration >150 ug/mL at four hours after ingestion and 50.0 ug/mL at twelve hours after ingestion are often associated with toxic reactions. 32 Z87.440 33 NO GROWTH: FINAL REPORT Procedures Date Code Description Status 04/22/2018 49049 Theraputic Or Diagnostic Injection Completed 02/25/2018 46225 Brief Emotional/Behav Assessment W/ Scoring Doc Per Completed Standard Inst 07/23/2017 75671 Brief Emotional/Behav Assessment W/ Scoring Doc Per Completed Standard Inst 03/24/2017 64186 Pulse Oximetry Completed 03/05/2017 18176 Brief Emotional/Behav Assessment W/ Scoring Doc Per Completed Standard Inst 04/30/2016 73749 Remove Impacted Cerumen Completed 08/23/2014 56313 Nerve Conduction 7-8 Studies Completed 08/23/2014 65467 Needle Electromyography Complete, Five Or More Muscles Completed Studied 07/15/2006 38836 Fiberoptic Laryngoscopy,Diag. Completed Encounters Type Date Location Provider Dx Diagnosis Office Visit 05/12/2018 Family Yael Botello, M54.16 Radiculopathy, 3:30p [address] PNP-BC, [employer] MACHINE OPERATOR, lumbar region Ibclc M25.512 Pain in left shoulder Office Visit 04/22/2018 10:30a Family Yael Botello, M62.[address] PNP-BC, [employer]ING MACHINE OPERATOR, of back Ibclc M54.5 Low back pain Office Visit 03/12/2018 10:30a Yael Wyatt, F41.9 Anxiety disorder, [address] PNP-BC, [employer] MACHINE OPERATOR, unspecified Ibclc F31.9 Bipolar disorder, unspecified K59.00 Constipation, unspecified R39.15 Urgency of urination Office Visit 02/25/2018 10:00a Yael Wyatt, F31.9 Bipolar disorder, [address] RD PNP-BC, [employer]ING MACHINE OPERATOR, unspecified Ibclc F41.9 Anxiety disorder, unspecified G62.9 Polyneuropathy, unspecified M54.5 Low back pain Z63.79 Other stressful life events affecting family and household Office Visit 12/23/2017 6:00p Family Yael Botello, Z00.[address] PNP-BC, [employer]ING MACHINE OPERATOR, general adult Ibclc medical exam w/o abnormal findings F31.9 Bipolar disorder, unspecified M54.5 Low back pain M48.00 Spinal stenosis, site unspecified Office Visit 11/21/2017 3:45p Family Lelia Appiah, N30.90 Cystitis, [address] MEIR Gaona unspecified without hematuria Office Visit 11/05/2017 9:15a Family Lelia Appiah, L03.011 Cellulitis of right [address] MEIR Gaona finger Office Visit 10/03/2017 9:00a Family Medicine Ezra, Z30.8 Encounter for other [address] Candigeovanny arias , [employer] MACHINE OPERATOR management Office Visit 09/22/2017 11:30a Family Medicine Kyle F31.9 Bipolar disorder, [address] RD Yael, unspecified PNP-BC, [employer]ING MACHINE OPERATOR, Ibclc M54.2 Cervicalgia F41.9 Anxiety disorder, unspecified R31.9 Hematuria, unspecified Office Visit 08/21/2017 11:30a Family Yael Botello, F31.9 Bipolar disorder, [address] RD PNP-BC, [employer] M[employer]ING MACHINE OPERATOR, unspecified Ibclc M54.2 Cervicalgia F41.9 Anxiety disorder, unspecified E55.9 Vitamin D deficiency, unspecified N39.0 Urinary tract infection, site not specified Office Visit 07/23/2017 10:30a Family Yael Botello, F31.9 Bipolar disorder, [address] RD PNP-BC, [employer] MATTING MACHINE OPERATOR, unspecified Ibclc M54.2 Cervicalgia N39.0 Urinary tract infection, site not specified Z13.1 Encounter for screening for diabetes mellitus G62.9 Polyneuropathy, unspecified Office Visit 07/01/2017 2:45p Family Yael Botello, F31.9 Bipolar disorder, [address] RD PNP-BC, [employer] MATTING MACHINE OPERATOR, unspecified Ibclc M54.2 Cervicalgia F41.9 Anxiety disorder, unspecified M54.5 Low back pain K21.9 Gastro-esophageal reflux disease without esophagitis Office Visit 05/27/2017 1:00p Family Yael Botello, F31.9 Bipolar disorder, [address] RD PNP-BC, [employer] MATTING MACHINE OPERATOR, unspecified Ibclc M54.2 Cervicalgia F41.9 Anxiety disorder, unspecified Office Visit 05/07/2017 11:00a Family Yael Botello, F31.9 Bipolar disorder, [address] RD PNP-BC, [employer] MATTING MACHINE OPERATOR, unspecified Ibclc M54.2 Cervicalgia M54.5 Low back pain F41.9 Anxiety disorder, unspecified Office Visit 04/30/2017 10:00a Family Yael Botello, F31.9 Bipolar disorder, [address] RD PNP-BC, [employer] MATTING MACHINE OPERATOR, unspecified Ibclc M54.2 Cervicalgia M54.5 Low back pain Office Visit 03/24/2017 1:15p Family Medicine Yael Wright, F31.9 Bipolar disorder, [address] RD PNP-BC, [employer] MATTING MACHINE OPERATOR, unspecified Ibclc R53.81 Other malaise H92.03 Otalgia, bilateral K59.03 Drug induced constipation Office Visit 03/05/2017 10:15a Family Medicine Yael Wright, F31.9 Bipolar disorder, [address] RD PNP-BC, [employer] M[employer]ING MACHINE OPERATOR, unspecified Ibclc G62.9 Polyneuropathy, unspecified M48.00 Spinal stenosis, site unspecified Office Visit 02/20/2017 3:15p Family Medicine Yael Wright, M48.00 Spinal stenosis, [address] RD PNP-BC, [employer] MACHINE OPERATOR, site unspecified Ibclc G62.9 Polyneuropathy, unspecified M54.2 Cervicalgia Office Visit 12/04/2016 10:30a Physical Medicine & Margareth Hallman M54.5 Low back pain Infectious Disease MD M54.2 Cervicalgia M25.512 Pain in left shoulder G56.02 Carpal tunnel syndrome, left upper limb Office Visit 12/02/2016 3:00p Family Medicine Yael Wright, M48.00 Spinal stenosis, West RD PNP-BC, [employer] MACHINE OPERATOR, site unspecified Ibclc M54.2 Cervicalgia J20.9 Acute bronchitis, unspecified Office Visit 10/31/2016 1:00p Family Medicine Yael Wright, M48.00 Spinal stenosis, West RD PNP-BC, [employer] MACHINE OPERATOR, site unspecified Ibclc M54.2 Cervicalgia Office Visit 09/30/2016 1:30p Family Medicine Yael Wright, M48.00 Spinal stenosis, West RD PNP-BC, [employer] M[employer] MACHINE OPERATOR, site unspecified Ibclc B07.0 Plantar wart M54.2 Cervicalgia K59.00 Constipation, unspecified Office Visit 04/30/2016 11:00a Family Medicine Wanda, R31.9 Hematuria, West RD Iris J., unspecified [employer] MACHINE OPERATOR-C F31.9 Bipolar disorder, unspecified K21.9 Gastro-esophageal reflux disease without esophagitis H61.21 Impacted cerumen, right ear Z02.1 Encounter for pre-employment examination Z23 Encounter for immunization Z11.1 Encounter for screening for respiratory tuberculosis Office Visit 05/11/2015 11:00a Yael Martin, R10.9 Unspecified abdominal PA-C pain R13.10 Dysphagia, unspecified K21.9 Gastro-esophageal reflux disease without esophagitis R11.2 Nausea with vomiting, unspecified Office Visit 08/22/2006 8:15a Operating Room Liam Valadez, 384.21 Tympanic Membrane M.D. Central Perforation Office Visit 07/15/2006 8:45a Operating Room Liam Valadez, 780.53 Hypersomnia W/ M.D. Sleep Apnea Unspecified 380.10 Otitis Externa Infective Unspec Plan of Treatment 05/12/2018 - Yael Wright, PNP-BC, [employer] M[employer] MACHINE OPERATOR, PnfclS65.16 Radiculopathy, lumbar regionComments:i'd like to try and get you in with chiropractor b/c i think an adjustment would help you a lot.Referral:Freeman Salinas DC, LehvwdpsrryfO35.512 Pain in left shoulderNew Medication:Decadron 0.5 mg - 2 tabs by mouth every day x 5 daysNew Therapy:Physical TherapyComments:it's hard to say what you've done to your shoulder but the first thing we need to try is PT and see if we can get it loosened up.
[2018-06-16 21:24] VITALS: BP 112/69
--- NOTE | 2018-06-16 22:09 | UC ---
Abdominal Pain Female HPI - HPI Summary HPI Summary: 37-year-old woman comes in with a chief complaint abdominal pain. Pain started this morning after she had a bowel movement. Pain primarily is in the lower abdomen but it is always crossed. Worse is 10 out of 10. Patient has pain medicines that she takes since not helping with the pain. She's past her a little gas. She's had multiple abdominal surgeries. No fever no vomiting. - History of Current Complaint Chief Complaint: UCAbdominalPain Stated Complaint: BODY ACHES,VOMITING,POSSIBLE URINARY Time Seen by Provider: 06/16/18 21:58 Hx Last Menstrual Period: unknown Pain Intensity: 9 Allergies/Adverse Reactions: Allergies Allergy/AdvReac Type Severity Reaction Status Date / Time hydrocodone Allergy Hives Verified 06/16/18 21:13 Home Medications: Home Medications Ketorolac TAB * [Toradol TAB *] 10 mg PO Q6H 06/16/18 [History Confirmed ] PMH/Surg Hx/FS Hx/Imm Hx Previously Healthy: Yes GI/ History: Gastroesophageal Reflux - Surgical History Surgical History: Yes Surgery Procedure, Year, and Place: C-sections 2000,2004,, Cholecystectomy [facility] 2005, Gastric bypass 2007 [place], 360 degree body tuck AND BREAST IMPLANTS - 2009 [place]; 2012- TUBAL LIGATION- [place] - Family History Known Family History: Positive: Diabetes - Social History Alcohol Use: None Alcohol Amount: Quit drinking in 2011 Substance Use Type: Marijuana, Prescribed Substance Use Comment - Amount & Last Used: medical Smoking Status (MU): Never Smoked Tobacco Have You Smoked in the Last Year: No Household Exposure Type: Cigarettes Review of Systems All Other Systems Reviewed And Are Negative: Yes Constitutional: Positive: Negative Skin: Positive: Negative Eyes: Positive: Negative ENT: Positive: Negative Respiratory: Positive: Negative, Shortness Of Breath Gastrointestinal: Positive: Abdominal Pain Genitourinary: Positive: Negative Motor: Positive: Negative Neurovascular: Positive: Negative Musculoskeletal: Positive: Negative Neurological: Positive: Negative Psychological: Positive: Negative Is Patient Immunocompromised?: No Physical Exam Triage Information Reviewed: Yes Appearance: Well-Nourished, Ill-Appearing - MILD, Pain Distress - MILD Vital Signs: Initial Vital Signs Temp 98.4 F 06/16/18 21:17 Pulse 96 06/16/18 21:17 Resp 17 06/16/18 21:17 BP 112/69 06/16/18 21:17 Pulse Ox 98 06/16/18 21:17 Vital Signs Reviewed: Yes Eye Exam: Normal Eyes: Positive: Conjunctiva Clear Neck: Positive: Supple Respiratory: Positive: Lungs clear, Normal breath sounds, No respiratory distress Cardiovascular: Positive: RRR Abdomen Description: Positive: CVA Tenderness (R), CVA Tenderness (L), Other: - DIFFUSE ABD TENDERNESS TO PALPATION Bowel Sounds: Positive: Hypoactive Musculoskeletal Exam: Normal Musculoskeletal: Positive: Strength Intact, ROM Intact Neurological Exam: Normal Neurological: Positive: Alert, Muscle Tone Normal Psychological Exam: Normal Psychological: Positive: Normal Response To Family, Age Appropriate Behavior Skin Exam: Normal Abd Pain Female Course/Dx - Course Course Of Treatment: Due to the patient's abdominal pain and prior multiple surgeries possibility of bowel obstruction I recommended further evaluation emergency department. Patient plans to go by POV her daughters the ems driver. I talked to Dr. mix in the [facility] emergency department. - Differential Dx/Diagnosis Provider Diagnosis: Abdominal pain Discharge - Sign-Out/Discharge Documenting (check all that apply): Patient Departure All imaging exams completed and their final reports reviewed: No Studies - Discharge Plan Condition: Stable Disposition: HOME-RECOMMEND TO ED Referrals: Yael Wright NP [Primary Care Provider] - Additional Instructions: GO DIRECTLY TO THE EMERGENCY DEPARTMENT FOR FURTHER EVALUATION. - Billing Disposition and Condition Condition: STABLE Disposition: Home-Recommend to ED
== END 2018-06-16 22:17 | disposition home health service (06) ==
LOC: UCCORT 20:21
DX: R10.30 Lower abdominal pain, unspecified (principal)
CPT/HCPCS: 81003; 99212; G0463

== ENCOUNTER 2018-12-10 15:56 | Emergency (ER) | payer OTHER ==
--- OUTSIDE RECORDS SUMMARY | 2018-12-10 17:29 | XMS REPORT | Continuity of Care Document ---
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 Problems Active Problems Provider Date Recurrent urinary tract infection Yael Santamaria PA-C Onset: 05/11/2015 Carpal tunnel syndrome Yael Santamaria PA-C Onset: 05/11/2015 Anemia Yael Santamaria PA-C Onset: 05/11/2015 Cervical arthritis Yael Santamaria PA-C Onset: 05/11/2015 Sciatica Yael Santamaria PA-C Onset: 05/11/2015 Anxiety Yael Santamaria PA-C Onset: 05/11/2015 History of bypass of stomach Yael Santamaria PA-C Onset: 05/11/2015 Gastroesophageal reflux disease Yael Santamaria PA-C Onset: 05/11/2015 Low back pain Margareth Hallman MD Onset: 12/04/2016 Neck pain Margareth Hallman MD Onset: 12/04/2016 Shoulder joint pain Margareth Hallman MD Onset: 12/04/2016 Bipolar I disorder Yael Wright PNP-BC, MAXINE, Ibyvon Onset: 03/05/2017 Social History Type Date Description Comments Sex Unknown Tobacco Use Start: Unknown Never Smoked Cigarettes ETOH Use Denies alcohol use Tobacco Use Start: Unknown Patient has never smoked Recreational Drug Use Denies Drug Use Smoking Status Reviewed: 10/20/18 Patient has never smoked Allergies, Adverse Reactions, Alerts Active Allergies Reaction Severity Comments Date Penicillin 04/30/2016 Hydrocodone 04/30/2016 Bactrim Urticaria Moderate 08/21/2017 Inactive Allergies NKDA 08/23/2014 Medications Active Medications SIG Qnty Indications Ordering Date Provider Valium 1 by mouth every 14tabs Yael Wright, 09/10/2018 5mg Tablets 8 hours as needed PNP-BC, INSIDE SALES ASSOCIATE, for severe Ibclc anxiety Reference #: [id number] Nix Complete Lice as directed 2bottles Yael Wright, 09/08/2018 Treatment Kit PNP-BC, INSIDE SALES ASSOCIATE, 1&0.25% Ibclc Kit Lidocaine apply to back 30gm Yael Wright, 07/20/2018 4% Cream every 4-6 hours PNP-BC, INSIDE SALES ASSOCIATE, as needed for Ibclc pain Risperidone 1 by mouth twice 60tabs Yael Wright, 07/13/2018 1mg a day PNP-BC, INSIDE SALES ASSOCIATE, Tablets Ibclc Magnesium 1 by mouth every 30tabs M62.838 Yael Wright, 07/07/2018 400mg day PNP-BC, INSIDE SALES ASSOCIATE, Tablets Ibclc Multi For Her 1 by mouth every 30caps M62.838 Yael Wright, 07/07/2018 day PNP-BC, INSIDE SALES ASSOCIATE, Capsules Ibclc Oxycodone-Acetaminop 1 by mouth for 120tabs M48.00 Yael Wright, 2018 hen severe pain every PNP-BC, INSIDE SALES ASSOCIATE, 10-325mg Tablets 6 hours as needed Ibclc Reference #: [id number] M54.5 M54.16 Pain Relieving 1 to back or 18units Yael Wright, 07/07/2018 Lidocaine Patch lower leg every 6 PNP-BC, INSIDE SALES ASSOCIATE, Ibclc 4% Patches hours as needed Ketorolac Tromethamine 1 tab every 4-6 30tabs M62.830 Yael Wright, 05/13 10mg hours as needed PNP-BC, INSIDE SALES ASSOCIATE, Ibclc Tablets pain Duloxetine HCL 1 by mouth every 30caps F41.9 Yael Wright, 04/20/[address] day PNP-BC, INSIDE SALES ASSOCIATE, Ibclc Part F31.9 Polyethylene Glycol 3350 mix 1 tablespoon in 255gm K59.00 Yael Wright, 03/12/2018 8 ounces bottle two PNP-BC, INSIDE SALES ASSOCIATE, 3350NF Powder times a day Ibclc Quetiapine Fumarate take 1 at bedtime 30tabs F31.9 Yael Wright, 2017 50mg with 200 mg tablet. PNP-BC, INSIDE SALES ASSOCIATE, Tablets Ibclc Quetiapine Fumarate 1 tab at bedtime 30tabs F31.9 Yael Wright, 2017 200mg with 50mg tablet PNP-BC, INSIDE SALES ASSOCIATE, Tablets Ibclc Tramadol HCL take two tablets by 180tabs M54.2 Yael Wright, 07/23/2017 50mg Tablets mouth every 8 hours PNP-BC, INSIDE SALES ASSOCIATE, as needed for pain Ibclc Reference #: [id number] Cyclobenzaprine HCL 1 by mouth three 90tabs M48.00 Yael Wright, 2017 10mg times a day as PNP-BC, INSIDE SALES ASSOCIATE, Tablets needed muscle Ibclc spasms M54.5 M54.2 Clonazepam take 1 tab every day 90tabs F41.9 Yael Wright, 06/19/2017 1mg Tablets as needed for PNP-BC, INSIDE SALES ASSOCIATE, moderate severe Ibclc anxiety Reference #: [id number] Zofran Odt 1 po q6 hours as 30tabs R11.0 Yael Wright, 03/05/2017 8mg Tablets needed PNP-BC, INSIDE SALES ASSOCIATE, Dispers Ibclc Vistaril 1 cap by mouth every 120caps F41.9 Yael Wright, 03/05/2017 50mg Capsules 6 hours as needed PNP-BC, INSIDE SALES ASSOCIATE, Ibclc Pantoprazole Sodium 1 tab once to twice 60tabs K21.9 Yael Wright, 2015 40mg a day PNP-BC, INSIDE SALES ASSOCIATE, Tablets Ibclc Ra Vitamin D-3 1 by mouth everyday 30caps E55.9 Yael Wright, 2000Unit PNP-BC, INSIDE SALES ASSOCIATE, Capsules Ibclc History Medications Nitrofurantoin Monohyd 1 by mouth twice 20caps Yael Wright, 09/29/2018 - Macro a day PNP-BC, INSIDE SALES ASSOCIATE, 10/09/2018 100mg Capsules Ibclc Nix Creme Rinse as directed 118ml Yael Wright, 09/08/2018 - 1% Liquid PNP-BC, INSIDE SALES ASSOCIATE, 09/08/2018 Ibclc Lidocaine apply to back 30gm Yael Wright, 07/16/2018 - 5% Cream every 4-6 hours PNP-BC, INSIDE SALES ASSOCIATE, 07/20/2018 as needed Ibclc Risperidone 1 tab every 60tabs Yael Wright, 07/11/2018 - 0.5mg Tablets morning and if PNP-BC, INSIDE SALES ASSOCIATE, 07/13/2018 needed 2nd dose Ibclc maybe taken at midday Oxycontin 1 po bid 60tabs M48.00 Yael Wright, 07/07/2018 - 20mg Tab ER 12H Reference #: PNP-BC, INSIDE SALES ASSOCIATE, 07/17/2018 Abuse-Det [id number] Ibclc M54.5 M54.16 Risperidone 1 by mouth 60tabs Yael Wright, 07/07/2018 - 1mg Tablets twice a day PNP-BC, INSIDE SALES ASSOCIATE, 07/11/2018 Ibclc Abilify 1 by mouth 30tabs F31.9 Yael Wright, 06/10/2018 - 5mg Tablets every day PNP-BC, INSIDE SALES ASSOCIATE, 07/07/2018 Ibclc Decadron 2 tabs by qs M25.512 Yael Wright, 05/12/2018 - 0.5mg Tablets mouth every PNP-BC, INSIDE SALES ASSOCIATE, 06/10/2018 day x 5 days Ibclc Medications Administered in Office Medication SIG Qnty Indications Ordering Provider Date Injection Ketorolac Yael Wright PNP-BC, 04/22/2018 Tromethamine 30 MG/mL INSIDE SALES ASSOCIATE, Ibclc (Toradol) Injection PPD Iris Muñoz, 04/30/2016 Injection INSIDE SALES ASSOCIATE-C Immunizations CPT Code Status Date Vaccine Lot # [id number] Given 04/30/2016 Td Preservative Free For Use In Individuals 7 Yrs Or [id number] Older Vital Signs Date Vital Result Comment 10/20/2018 1:42pm BP Systolic 126 mmHg BP Diastolic 93 mmHg Heart Rate 92 /min Respiratory Rate 18 /min Weight 151.00 lb 07/15/2018 11:20am BP Systolic Sitting Left Arm 124 mmHg BP Diastolic Sitting Left Arm 82 mmHg Body Temperature 97.7 F Heart Rate 83 /min Weight 156.00 lb Results Test Date Facility Test Result H/L Range Note Ua Routine 09/29/2018 [facility] Ua Specific [place] 1.010 1.010-1.030 Ua PH 7.0 6.5-7.5 Ua Color Yellow Yellow Ua Appera Cloudy Ua WBC 70 Ua Protein neg Negative Ua Glucose neg Negative Ua Ketones neg Negative Ua Bilirubin neg Negative Ua Urobilinogen 3.5 High 0.2 - 1.0 E.U./dL Ua Nitrite positive Negative Urine Culture 09/29/2018 [facility] Urine Culture ESCHERICHIA COLI Abnormal [address] [place] [address] [phone] Quantity > 100,000 CFU/mL 2 Urine Culture URETHRAL CAMRON Quantity 10,000 - 50,000 <SEE NOTE> 3 Escherichia Coli 09/29/2018 [facility] Nitrofurantoin <=16 Susceptible [address] [place] [address] [phone] Trimethoprim/Sulfamethoxazole >=320 Resistant Ampicillin >=32 Resistant Cefazolin <=4 Susceptible Ampicillin/Sulbactam 16 Intermediate Ciprofloxacin >=4 Resistant Piperacillin/Tazobactam <=4 Susceptible Ceftazidime <=1 Susceptible Ceftriaxone <=1 Susceptible Cefepime <=1 Susceptible Levofloxacin >=8 Resistant Imipenem <=0.25 Susceptible Gentamicin >=16 Resistant Tobramycin 2 Susceptible Poc Urinalysis 06/16/2018 [facility] Poc Glucose, Negative Negative [phone] Urine Poc Bilirubin, Urine Negative Negative Poc Ketone, Urine Negative Negative Poc Specific [place], Urine 1.015 Normal 1.010-1.030 Poc Blood, Urine 1+ Abnormal Negative Poc pH, Urine 6.0 Normal 5-9 Poc Protein, Urine Negative Negative Poc Urobilinogen, Urine 0.2 Negative Poc Nitrite, Urine Negative Negative Poc Leukocytes, Urine Negative Negative Poc Color, Urine Yellow Poc Clarity, Urine Clear 4 1 ESCHERICHIA COLI 2 > 100,000 CFU/mL 3 10,000 - 50,000 CFU/mL 4 Commercial Cleaner: [id number] Procedures Date Code Description Status 07/15/2018 19348 Brief Emotional/Behav Assessment W/ Scoring Doc Per Completed Standard Inst Medical Devices Description No Information Available Encounters Type Date Location Provider Dx Diagnosis Office Visit 09/29/2018 Family Medicine Family Nurse N39.0 Urinary tract 3:45p [address] infection, site not specified Office Visit 07/15/2018 Family Medicine Yael Wright, M54.16 Radiculopathy, 11:00a [address] PNP-BC, INSIDE SALES ASSOCIATE, lumbar region Ibclc M62.838 Other muscle spasm M79.605 Pain in left leg F31.9 Bipolar disorder, unspecified F41.9 Anxiety disorder, unspecified Office Visit 07/07/2018 4:00p Family Medicine Yael Wright, M62.[address] PNP-BC, INSIDE SALES ASSOCIATE, spasm Ibclc M54.16 Radiculopathy, lumbar region F31.9 Bipolar disorder, unspecified Office Visit 06/10/2018 8:45a Family Medicine Yael Wright, F31.9 Bipolar disorder, [address] PNP-BC, INSIDE SALES ASSOCIATE, unspecified Ibclc F41.9 Anxiety disorder, unspecified M54.16 Radiculopathy, lumbar region Office Visit 05/12/2018 3:30p Family Medicine Kyle, M54.16 Radiculopathy, [address] Yael, lumbar region PNP-BC, INSIDE SALES ASSOCIATE, Ibclc M25.512 Pain in left shoulder Assessments Date Code Description Provider 10/20/2018 F31.9 Bipolar disorder, unspecified Yael Wright, PNP-BC, INSIDE SALES ASSOCIATE, Ibclc 09/29/2018 N39.0 Urinary tract infection, site not Melonie Leigh MD specified 09/29/2018 N39.0 Urinary tract infection, site not Family Nurse specified 07/15/2018 M54.16 Radiculopathy, lumbar region Yael Wright, PNP-BC, INSIDE SALES ASSOCIATE, Ibclc 07/15/2018 M62.838 Other muscle spasm Yael Wright, PNP-BC, INSIDE SALES ASSOCIATE, Ibclc 07/15/2018 M79.605 Pain in left leg Yael Wright, PNP-BC, INSIDE SALES ASSOCIATE, Ibclc 07/15/2018 F31.9 Bipolar disorder, unspecified Yael Wright, PNP-BC, INSIDE SALES ASSOCIATE, Ibclc 07/15/2018 F41.9 Anxiety disorder, unspecified Yael Wright, PNP-BC, INSIDE SALES ASSOCIATE, Ibclc 07/07/2018 M62.838 Other muscle spasm Yael Wright, PNP-BC, INSIDE SALES ASSOCIATE, Ibclc 07/07/2018 M54.16 Radiculopathy, lumbar region Yael Wright, PNP-BC, INSIDE SALES ASSOCIATE, Ibclc 07/07/2018 F31.9 Bipolar disorder, unspecified KyleYael daniels, PNP-BC, INSIDE SALES ASSOCIATE, Ibclc 06/10/2018 F31.9 Bipolar disorder, unspecified Yael Wright PNP-BC, INSIDE SALES ASSOCIATE, Ibclc 06/10/2018 F41.9 Anxiety disorder, unspecified Yael Wright PNP-BC, INSIDE SALES ASSOCIATE, Ibclc 06/10/2018 M54.16 Radiculopathy, lumbar region Yael Wright PNP-BC, INSIDE SALES ASSOCIATE, Ibclc 05/12/2018 M54.16 Radiculopathy, lumbar region Yael Wright PNP-BC, INSIDE SALES ASSOCIATE, Ibclc 05/12/2018 M25.512 Pain in left shoulder Yael Wright PNP-BC, INSIDE SALES ASSOCIATE, Ibclc Plan of Treatment 10/20/2018 - Yael Wright PNP-BC, INSIDE SALES ASSOCIATE, FcpocY87.9 Bipolar disorder, unspecifiedComments:you need to go to [facility] and get the hotel for a couple nights till you can go back to the apt. you don't want to give them any reason to take Benny. Functional Status Functional Condition Comment Date Status Independent with all ADL's Active Independent with all IADL's Active Mental Status Description No Information Available Referrals Refer to Reason for Referral Status Appt Date Freeman Salinas DC chronic back pain with acute flare of sciatic Closed [facility] [address] [place] [address] [phone]
--- OUTSIDE RECORDS SUMMARY | 2018-12-10 17:29 | XMS REPORT | Continuity of Care Document ---
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 Problems Description No Active Problems Social History Type Date Description Comments Sex Female ETOH Use 11/27/2018 Denies alcohol use Recreational Drug Use Denies Drug Use Tobacco Use Reviewed: 11/27/18 Patient has never smoked Recreational Drug Use 11/27/2018 Taking Valium Recreational Drug Use 11/27/2018 Regularly uses Marijuana Recreational Drug Use 11/27/2018 Teaching provided regarding Naloxone/Narcan Training Available At [facility] Smoking Status Reviewed: 11/27/18 Patient has never smoked Tattoo/Piercing Tattoo Tattoo/Piercing Pierced ears Tattoo/Piercing 11/27/2018 Tattoos professionally done Allergies, Adverse Reactions, Alerts Active Allergies Reaction Severity Comments Date Penicillin 10/11/2016 Vicodin 10/11/2016 Inactive Allergies NKDA 09/15/2015 Medications Active Medications SIG Qnty Indications Ordering Provider Date Metronidazole one tab by 14tabs N76.0 Shalini Emanuel, 11/27/2018 500mg Tablets mouth twice INSURANCE ADVISER daily x 7 days no etoh Flexeril INSURANCE ADVISER 10/11/2016 Protonix Unknown Vitamin D-1000 Maximum Unknown Strength Oxycodone-Acetaminophen Unknown 10-325mg Tablets Tramadol HCL Unknown Seroquel Unknown Seroquel XR Unknown Clonidine HCL ER Unknown Cymbalta Unknown Vistaril Unknown Diazepam Unknown Immunizations Description No Information Available Vital Signs Date Vital Result Comment 11/27/2018 12:36pm BP Systolic 116 mmHg BP Diastolic 78 mmHg Weight 150.00 lb 10/11/2016 12:13pm BP Systolic 120 mmHg BP Diastolic 80 mmHg Height 65.5 inches 5'5.50" Weight 156.00 lb BMI (Body Mass Index) 25.6 kg/m2 Results Test Date Facility Test Result H/L Range Note Wet Prep.... 11/27/2018 [facility] WBC Smear 0 Clue Cells Vag Fluid Wet Prep many Altagracia Wet Prep 0 Lactobacillus Wet Prep few Whiff Wet Prep + Bacteria Wet Prep n/a PH Wet Prep 6 Misc Other Test no trich seen Laboratory test finding 11/27/2018 [facility] Hep C Rapid Test nonreactive Laboratory test finding 11/27/2018 [facility] HIV Rapid... Nonreactive Laboratory test finding 11/27/2018 [facility] W/RFX To Titer & <pending> Confirmation Procedures Description No Information Available Medical Devices Description No Information Available Encounters Type Date Location Provider Dx Diagnosis Office Visit 11/27/2018 [facility] - Shalini Emanuel Z11.3 Encntr screen for 12:00p STD INSURANCE ADVISER infections w sexl mode of transmiss Z11.4 Encounter for screening for human immunodeficiency virus Z11.59 Encounter for screening for other viral diseases N76.0 Acute vaginitis Assessments Date Code Description Provider 11/27/2018 Z11.3 Encounter for screening for infections with a Shalini Emanuel NP predominantly sexual mode of transmission 11/27/2018 Z11.4 Encounter for screening for human Shalini Emanuel NP immunodeficiency virus [HIV] 11/27/2018 Z11.59 Encounter for screening for other viral diseases Shalini Emanuel NP 11/27/2018 N76.0 Acute vaginitis Shalini Emanuel NP Plan of Treatment 11/27/2018 - Shalini Emanuel NPZ11.3 Encounter for screening for infections with a predominantly sexual mode of transmissionComments:Reviewed STD risks and prevention with patient. Patient states understanding.Follow up:prnZ11.4 Encounter for screening for human immunodeficiency virus [HIV]Z11.59 Encounter for screening for other viral zikcjuozN42.0 Acute vaginitisNew Medication: Metronidazole 500 mg - one tab by mouth twice daily x 7 days no etohComments:+ whiff test and multiple clue cells on wet prep. Rx metronidazole- reviewed use of, side effects and precautions (including no etoh) with patient who states understanding. Instructed patient on pelvicrest x 2 weeks. Functional Status Description No Information Available Mental Status Description No Information Available Referrals Description No Information Available
[2018-12-10 17:36] VITALS: BP 108/71
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
== END 2018-12-10 18:40 | disposition home or self-care (01) ==
LOC: UCCORT 15:56
DX: R05 Cough (principal); Z88.5 Allergy status to narcotic agent
CPT/HCPCS: 99212; G0463

== ENCOUNTER 2018-12-16 16:09 | Emergency (ER) | payer OTHER ==
[2018-12-16 16:40] VITALS: BP 150/106
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
== END 2018-12-16 17:58 | disposition home or self-care (01) ==
LOC: UCCORT 16:09
DX: S69.92XA Unspecified injury of left wrist, hand and finger(s), initial encounter (principal); G89.29 Other chronic pain; Z88.5 Allergy status to narcotic agent; Y04.0XXA Assault by unarmed brawl or fight, initial encounter; Y92.9 Unspecified place or not applicable
CPT/HCPCS: 99212; G0463